=== PATIENT | male | born 1990 | race Caucasian/White ===

== ENCOUNTER 2017-10-22 18:59 | Emergency (ER) | payer OTHER ==
[~2017-10-22] VITALS: Ht 185.4 cm; Wt 90.0 kg
[~2017-10-22 18:59] MED LIST: CLIN1CAP6 PO; MOTR200T PO
[2017-10-22 19:58] VITALS: BP 134/58; PULSE 86; RESP 20; TEMP 99.1; O2SAT 100
[2017-10-22] MEDS ORDERED: KETOROLAC TROMETHAMINE 60 MG/2 ML (IM) VIAL IM ONE (20:45)
[2017-10-22] MEDS ORDERED: CYCL10TA PO (20:46)
[2017-10-22] MEDS ORDERED: MOBI15TA PO (20:46)
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
== END 2017-10-22 20:55 | disposition home or self-care (01) ==
LOC: NEPD 18:59
DX: S32.424 Nondisplaced fracture of posterior wall of right acetabulum (principal); V49.9XXD Car occupant (driver) (passenger) injured in unspecified traffic accident, subsequent encounter; Z72.0 Tobacco use
CPT/HCPCS: 96372; 99283; J1885

== ENCOUNTER 2017-10-26 14:57 | Inpatient (IN) | payer OTHER ==
[~2017-10-26] VITALS: Ht 185.4 cm; Wt 88.9 kg
[~2017-10-26 14:57] MED LIST changes: -CLIN1CAP6 PO; +CYCL10TA PO; +MOBI15TA PO; -MOTR200T PO
[2017-10-26 15:08] VITALS: BP 132/59; PULSE 94; RESP 18; TEMP 98.2; O2SAT 97
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
[2017-10-26 20:04] LABS: AUTOMATED NEUTROPHIL # 4.6 TH/MM3 (1.8-7.7); BASOPHIL # 0.1 TH/MM3 (0-0.2); BASOPHIL % 0.7 % (0.0-2.0); EOSINOPHIL # 0.1 TH/MM3 (0-0.4); EOSINOPHIL % 1.6 % (0.0-4.0); HEMATOCRIT 36.9 % (39.0-51.0); HEMOGLOBIN 12.6 GM/DL (13.0-17.0); LYMPH % 25.6 % (9.0-44.0); LYMPHOCYTE # 1.8 TH/MM3 (1.0-4.8); MEAN CELL VOLUME 90.2 FL (80.0-100.0); MEAN CORPUSCULAR HEMOGLOBIN 30.9 PG (27.0-34.0); MEAN CORPUSCULAR HGB CONC 34.2 % (32.0-36.0); MONO % 8.5 % (0.0-8.0); MONOCYTE # 0.6 TH/MM3 (0-0.9); NEUT % 63.6 % (16.0-70.0); PLATELET COUNT 260 TH/MM3 (150-450); RED BLOOD COUNT 4.09 MIL/MM3 (4.50-5.90); WHITE BLOOD COUNT 7.2 TH/MM3 (4.0-11.0)
[2017-10-26 20:13] LABS: PROTHROMBIN TIME - PATIENT 9.9 SEC (9.8-11.6)
[2017-10-26 20:32] LABS: CREATININE 0.87 MG/DL (0.60-1.30)
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
[2017-10-27] MEDS: SODIUM CHLOR 0.9% 1000 ML INJ 1,000 ML IV SCH ×4 (00:18→19:22)
[2017-10-27] MEDS ORDERED: MORPHINE SULFATE 4 MG/ML INJ IV PUSH PRN (02:00)
[2017-10-27] MEDS ORDERED: BISACODYL 10 MG SUPP RECTAL PRN (02:00)
[2017-10-27] MEDS ORDERED: LACTULOSE SYRUP 20 GM/30 ML CUP PO PRN (02:00)
[2017-10-27] MEDS ORDERED: NALOXONE HCL 0.4 MG/ML AMP IV PUSH PRN (02:00)
[2017-10-27] MEDS ORDERED: ACETAMINOPHEN 325 MG TAB PO PRN (02:00)
[2017-10-27] MEDS ORDERED: SENNOSIDES 8.6 MG TAB PO PRN (02:00)
[2017-10-27] MEDS ORDERED: ONDANSETRON HCL 4 MG/2 ML VIAL IVP PRN (02:00)
[2017-10-27] MEDS ORDERED: MAGNESIUM HYDROXIDE SUSP 30 ML CUP PO PRN (02:00)
[2017-10-27 03:10] VITALS: BP 135/85; PULSE 80; RESP 16; O2SAT 99
[2017-10-27 06:07] VITALS: BP 135/86; PULSE 74; RESP 18; O2SAT 100
[2017-10-27 08:00] VITALS: BP 124/75; PULSE 95; RESP 16; O2SAT 97
[2017-10-27] MEDS ORDERED: METH10TA PO (08:02)
[2017-10-27 10:01] VITALS: BP 115/70; PULSE 76; RESP 16; TEMP 98.5; O2SAT 96
[2017-10-27] MEDS: SODIUM CHLORIDE 0.9% FLUSH 10 ML FLUSH IV FLUSH SCH ×2 (10:30→19:27)
[2017-10-27] MEDS: DOCUSATE SODIUM 50 MG/SENNA 8.6 MG TAB PO SCH ×2 (10:31→19:27)
[2017-10-27] MEDS: METHADONE HCL 10 MG TAB PO SCH (10:31)
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
[2017-10-27] MEDS ORDERED: ceFAZolin INJ 1,000 MG VIAL IV ONE (12:00)
[2017-10-27] MEDS ORDERED: DEXAMETHASONE SOD PHOS 4 MG/ML VIAL IV ONE (12:00)
[2017-10-27] MEDS ORDERED: ONDANSETRON HCL 4 MG/2 ML VIAL IV ONE (12:00)
[2017-10-27] MEDS ORDERED: ROCURONIUM INJ 50 MG/5 ML SYRINGE IV PUSH ONE (12:00)
[2017-10-27] MEDS ORDERED: PROPOFOL 200 MG/20 ML AMP IV ONE (12:00)
[2017-10-27] MEDS ORDERED: LIDOCAINE HCL 1% PF 5 ML SYRINGE OTHER ONE (12:00)
[2017-10-27] MEDS ORDERED: CHLORHEXIDINE GLUCONATE 2 % 1 PACK (2 CLOTHS) TOPICAL PRN (14:15)
[2017-10-27] MEDS ORDERED: LACTATED RINGER'S 1000 ML IV PRN (14:15)
[2017-10-27] MEDS ORDERED: METOPROLOL TARTRATE 25 MG TAB PO PRN (14:15)
[2017-10-27] MEDS ORDERED: POVIDONE IODINE 5% (ANTISEPSIS KIT) 4 APPLICATIONS EACH NARE PRN (14:15)
[2017-10-27] MEDS ORDERED: SODIUM CHLORID 0.9% 500 ML IV PRN (14:15)
[2017-10-27] MEDS ORDERED: GENTAMICIN SULFATE 80 MG/2 ML VIAL ONE (14:37)
[2017-10-27] MEDS ORDERED: ACETAMINOPHEN 1000 MG/100 ML 100 ML IV ONE (14:51)
[2017-10-27] MEDS ORDERED: FAMOTIDINE 20 MG/2 ML VIAL ONE (14:51)
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
[2017-10-27] MEDS ORDERED: FAMOTIDINE 20 MG/2 ML VIAL IV PUSH SCH (15:00)
[2017-10-27] MEDS ORDERED: ACETAMINOPHEN 1000 MG/100 ML 100 ML IV SCH (15:00)
[2017-10-27] MEDS ORDERED: TRANEXAMIC ACID INJ 1,335 MG in SODIUM CHLORIDE 0.9% INJ 100 ML IV SCH (15:30)
[2017-10-27] MEDS ORDERED: HYDROmorphone HCL PF 2 MG/ML VIAL ONE ×2 (15:43→18:52)
[2017-10-27] MEDS ORDERED: KETAMINE HCL 500 MG/5 ML VIAL ONE (15:43)
[2017-10-27] MEDS ORDERED: VANCOMYCIN HCL 1000 MG VIAL ONE (16:29)
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
[2017-10-27] MEDS ORDERED: MISCELLANEOUS PHARMACY INFORMATION XX ONE (18:00)
[2017-10-27] MEDS ORDERED: MISCELLANEOUS NURSING INFORMATION XX PRN (18:00)
--- NOTE | 2017-10-27 18:13 | RADRPT ---
EXAM DATE/TIME: 10/27/2017 17:39 [facility] COMPARISON: No previous studies available for comparison. INDICATIONS : ORIF of the right acetabulum. MEDICAL HISTORY : None. SURGICAL HISTORY : None. ENCOUNTER: Subsequent ACUITY: 1 week PAIN SCORE: Non-responsive. LOCATION: Right pelvis FINDINGS: 3 images were recorded digital in the operating room using C-arm during placement of an acetabular pl ate. CONCLUSION: Intraoperative images. Long Tripp MD on October 27, 2017 at 18:11 Board Certified Radiologist. This report was verified electronically.
[2017-10-27] MEDS ORDERED: DO NOT ADM ANY ANTICOAGULANT DRUGS PRN (18:15)
[2017-10-27] MEDS ORDERED: MIDAZOLAM HCL 2 MG/2 ML VIAL ONE (18:36)
[2017-10-27] MEDS ORDERED: *MEPERIDINE 25 MG INJ VIAL PERIprocedural Use ONLY ONE (18:46)
[2017-10-27] MEDS: MORPHINE SULFATE 30 MG/30 ML PCA IV SCH ×2 (18:57→23:27)
[2017-10-27] MEDS: LACTATED RINGER'S 1000 ML INJ 1,000 ML IV SCH ×2 (19:00→19:47)
[2017-10-27] MEDS: ACETAMINOPHEN/HYDROcodone 325 MG/10 MG TAB PO PRN ×2 (19:27→19:31)
[2017-10-27] MEDS ORDERED: HYDROmorphone HCL PF 2 MG/ML VIAL IV ONE (21:00)
[2017-10-27] MEDS ORDERED: METHOCARBAMOL 500 MG TAB PO ONE (21:00)
[2017-10-27 21:25] VITALS: BP 114/57; PULSE 71; RESP 18; TEMP 97.7; O2SAT 100; O2SAT 96
[2017-10-27] MEDS: PCA - TOTAL MG MORPHINE DELIVERED PER SHIFT SCH (22:00)
[2017-10-28 00:10] VITALS: BP 113/65; PULSE 90; RESP 18; TEMP 98.6; O2SAT 95
[2017-10-28] MEDS: ACETAMINOPHEN/HYDROcodone 325 MG/10 MG TAB PO PRN ×4 (01:30→20:18)
[2017-10-28] MEDS: ceFAZolin 2 GM PREMIX 50 ML IV SCH ×3 (03:59→20:19)
[2017-10-28] MEDS: MORPHINE SULFATE 30 MG/30 ML PCA IV SCH ×5 (04:05→21:47)
[2017-10-28 05:00] VITALS: BP 111/59; PULSE 84; RESP 18; TEMP 97.3; O2SAT 97
[2017-10-28] MEDS: VANCOMYCIN INJ 1,000 MG in SODIUM CHLOR 0.9% 250 ML INJ 250 ML IV SCH ×2 (05:10→16:41)
[2017-10-28] MEDS: LACTATED RINGER'S 1000 ML INJ 1,000 ML IV SCH (05:11)
[2017-10-28] MEDS: ENOXAPARIN SODIUM 30 MG/0.3 ML SYRINGE SQ SCH ×2 (06:00→17:00)
[2017-10-28] MEDS: PCA - TOTAL MG MORPHINE DELIVERED PER SHIFT SCH ×3 (06:00→20:19)
--- NOTE | 2017-10-28 06:52 | PD.ORT.PN ---
Subjective Subjective Remarks POD 1 s/p ORIF Right Acetabulum doing well. reports hip is sore but otherwise doign ok Objective Vitals Vital Signs Date Time Temp Pulse Resp B/P (MAP) Pulse Ox O2 Delivery O2 Flow Rate FiO2 10/28/17 06:00 17 10/28/17 05:00 97.3 84 18 111/59 (76) 97 10/28/17 04:58 21 10/28/17 04:05 17 10/28/17 00:10 98.6 90 18 113/65 (81) 95 10/27/17 23:27 16 10/27/17 22:00 16 10/27/17 21:25 97.7 71 18 114/57 (76) 96 10/27/17 21:25 100 Nasal Cannula 2.00 10/27/17 19:31 96 Nasal Cannula 2.00 10/27/17 19:00 97.5 95 20 152/71 (98) 100 Nasal Cannula 2 10/27/17 18:57 19 10/27/17 18:45 96 19 150/84 (106) 99 Nasal Cannula 2 10/27/17 18:30 99 20 121/60 (80) 100 Nasal Cannula 2 10/27/17 18:14 97.2 117 12 111/56 (74) 97 Nasal Cannula 4 10/27/17 10:01 98.5 76 16 115/70 (85) 96 10/27/17 08:00 95 16 124/75 (91) 97 Room Air I/O 10/27/17 10/27/17 10/27/17 10/28/17 10/28/17 10/28/17 07:00 15:00 23:00 07:00 15:00 23:00 Intake Total 1220 ml 2080 ml Output Total 160 ml 1955 ml Balance 1060 ml 125 ml Intake Oral 20 ml 680 ml IV Total 0 ml 1400 ml Other 1200 ml Output Urine Total 1950 ml Drainage Total 10 ml 5 ml Estimated Blood Loss 150 ml # Bowel Movements 0 Result Diagram: 10/26/17190710/26/171907 Imaging Last 24 hours Impressions Knee X-Ray 10/26/172139 Signed Impressions: Service Date/Time: Thursday, October 26, 2017 22:02 - CONCLUSION: No evidence of recent bony injury. Long Tripp MD Objective Remarks RLE: dressings clean and dry. intact. +knee brace. +drain with minimal drainage. NVI with good dorsiflexion Assessment & Plan Assessment and Plan 1) Right Acetabulum fx s/p ORIF - POD 1 -TTWB -posterior hip precautions -daily dressing changes POD 2 -knee brace while in bed -plan for DC home possibly Thursday -DVT prophylaxis -f/u with Afia or PA in 2 weeks Perfecto Vera/Rv Repairer BRANDON Oct 28, 2017 06:52
[2017-10-28] MEDS ORDERED: WALKER/ADULT/FO1 MIS (06:54)
[2017-10-28] MEDS ORDERED: XARE10TA PO (06:54)
[2017-10-28] MEDS ORDERED: HYDR-3583 PO (06:54)
--- NOTE | 2017-10-28 06:55 | HHI.FF ---
Face to Face Verification Diagnosis: (1) Fracture of right acetabulum Physical Therapy Gait training Hip: Hip fracture, Protocol: Right, Posterior hip precautions Canvas Knee Splint: At all times Right LE Weight Bearing: Toe Touch WB Nursing Dressing Changes: Daily dressing change, Xeroform (begin xeroform POD 10), Coverderm/Primapore I have seen patient Jh Simmons on 10/28/17. My clinical findings support the need for the requested home health care services because: Ltd mobility - disease progression I certify that my clinical findings support that this patient is homebound because: Post-op weakness Perfecto Vera/Machine Buffer PA Oct 28, 2017 06:55
[2017-10-28 07:16] VITALS: BP 115/68; PULSE 83; RESP 18; TEMP 98.2; O2SAT 93
[2017-10-28] MEDS: SODIUM CHLORIDE 0.9% FLUSH 10 ML FLUSH IV FLUSH SCH ×2 (08:05→20:19)
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
[2017-10-28] MEDS: INDOMETHACIN 75 MG CONTROLLED RELEASE CAP PO SCH (08:06)
[2017-10-28] MEDS: DOCUSATE SODIUM 50 MG/SENNA 8.6 MG TAB PO SCH ×2 (08:06→20:18)
[2017-10-28] MEDS: METHADONE HCL 10 MG TAB PO SCH (08:06)
[2017-10-28 09:23] LABS: BASOPHIL % 0.2 % (0.0-2.0); EOSINOPHIL % 0.1 % (0.0-4.0); HEMATOCRIT 35.5 % (39.0-51.0); HEMOGLOBIN 12.2 GM/DL (13.0-17.0); LYMPH % 7.4 % (9.0-44.0); LYMPHOCYTE # 0.9 TH/MM3 (1.0-4.8); MEAN CELL VOLUME 89.1 FL (80.0-100.0); MEAN CORPUSCULAR HEMOGLOBIN 30.6 PG (27.0-34.0); MEAN CORPUSCULAR HGB CONC 34.3 % (32.0-36.0); MEAN PLATELET VOLUME 8.5 FL (7.0-11.0); MONO % 7.1 % (0.0-8.0); MONOCYTE # 0.8 TH/MM3 (0-0.9); NEUT % 85.2 % (16.0-70.0); PLATELET COUNT 289 TH/MM3 (150-450); RED BLOOD COUNT 3.99 MIL/MM3 (4.50-5.90); RED CELL DISTRIBUTION WIDTH 12.5 % (11.6-17.2); WHITE BLOOD COUNT 11.7 TH/MM3 (4.0-11.0)
[2017-10-28 09:47] LABS: BICARBONATE 25.8 MEQ/L (21.0-32.0); CALCIUM 7.6 MG/DL (8.5-10.1); CREATININE 0.69 MG/DL (0.60-1.30)
[2017-10-28] MEDS ORDERED: METHADONE HCL 10 MG TAB PO ONE (11:45)
[2017-10-28] MEDS ORDERED: MORPHINE SULFATE 4 MG/ML INJ IV PUSH ONE (11:45)
[2017-10-28 11:54] VITALS: BP 127/69; PULSE 78; RESP 18; TEMP 98.4; O2SAT 97
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
[2017-10-28 16:00] VITALS: BP 124/69; PULSE 79; RESP 18; TEMP 98; O2SAT 96
[2017-10-28] MEDS: MORPHINE SULFATE 4 MG/ML INJ IV PUSH PRN (16:42)
[2017-10-28 20:00] VITALS: BP 124/75; PULSE 84; RESP 16; TEMP 98.8; O2SAT 97
[2017-10-29] VITALS (7 sets, daily range): BP systolic 106–129; BP diastolic 57–87; PULSE 71–84; RESP 15–18; TEMP 96–98; O2SAT 96–97
[2017-10-29] MEDS: ACETAMINOPHEN/HYDROcodone 325 MG/10 MG TAB PO PRN ×4 (00:10→13:04)
[2017-10-29] MEDS: VANCOMYCIN INJ 1,000 MG in SODIUM CHLOR 0.9% 250 ML INJ 250 ML IV SCH ×2 (04:32→17:00)
[2017-10-29] MEDS: ceFAZolin 2 GM PREMIX 50 ML IV SCH ×3 (04:32→20:15)
[2017-10-29] MEDS: LACTATED RINGER'S 1000 ML INJ 1,000 ML IV SCH ×3 (04:32→19:50)
[2017-10-29] MEDS: MORPHINE SULFATE 4 MG/ML INJ IV PUSH PRN ×5 (04:32→22:04)
[2017-10-29] MEDS: MORPHINE SULFATE 30 MG/30 ML PCA IV SCH ×2 (04:50→08:59)
[2017-10-29] MEDS: PCA - TOTAL MG MORPHINE DELIVERED PER SHIFT SCH ×3 (04:51→20:16)
[2017-10-29] MEDS: ENOXAPARIN SODIUM 30 MG/0.3 ML SYRINGE SQ SCH ×2 (06:48→17:00)
--- NOTE | 2017-10-29 06:58 | PD.ORT.PN ---
Subjective Subjective Remarks POD 2 s/p ORIF Right Acetabulum doing well. reports hip is sore but otherwise doign ok. out of bed with therapy yesterday and doign well Objective Vitals Vital Signs Date Time Temp Pulse Resp B/P (MAP) Pulse Ox O2 Delivery O2 Flow Rate FiO2 10/29/17 04:51 18 10/29/17 04:50 18 10/29/17 00:17 96 10/29/17 00:00 97.0 75 15 109/65 (80) 96 10/28/17 20:19 18 10/28/17 20:00 98.8 84 16 124/75 (91) 97 10/28/17 17:06 18 10/28/17 17:01 18 10/28/17 16:47 18 10/28/17 16:00 98.0 79 18 124/69 (87) 96 10/28/17 14:43 18 10/28/17 13:07 16 10/28/17 12:31 18 10/28/17 12:31 18 10/28/17 12:13 16 10/28/17 11:54 98.4 78 18 127/69 (88) 97 10/28/17 09:06 18 10/28/17 08:22 18 10/28/17 07:16 98.2 83 18 115/68 (84) 93 I/O 10/28/17 10/28/17 10/28/17 10/29/17 10/29/17 10/29/17 07:00 15:00 23:00 07:00 15:00 23:00 Intake Total 2080 ml 720 ml 800 ml Output Total 1955 ml 640 ml Balance 125 ml 720 ml 160 ml Intake Oral 680 ml 720 ml 800 ml IV Total 1400 ml Output Urine Total 1950 ml 640 ml Drainage Total 5 ml # Voids 5 # Bowel Movements 0 0 0 Result Diagram: 10/28/17 0755 10/28/17 0755 Imaging Last 24 hours Impressions Knee X-Ray 10/26/172139 Signed Impressions: Service Date/Time: Thursday, October 26, 2017 22:02 - CONCLUSION: No evidence of recent bony injury. Long Tripp MD Objective Remarks RLE: dressings clean and dry. intact. +knee brace. +drain with minimal drainage. NVI with good dorsiflexion Assessment & Plan Assessment and Plan 1) Right Acetabulum fx s/p ORIF - POD 2 -TTWB -posterior hip precautions -daily dressing changes beginning today -knee brace while in bed -plan for DC home possibly Thursday -DVT prophylaxis -f/u with Afia or PA in 2 weeks -DC GEAR SHAVER SET UP OPERATOR and DC drain today Perfecto Vera/Lehr Stripper BRANDON Oct 29, 2017 06:58
[2017-10-29] MEDS: INDOMETHACIN 75 MG CONTROLLED RELEASE CAP PO SCH (08:53)
[2017-10-29] MEDS: DOCUSATE SODIUM 50 MG/SENNA 8.6 MG TAB PO SCH ×2 (08:53→20:16)
[2017-10-29] MEDS: METHADONE HCL 10 MG TAB PO SCH (08:54)
[2017-10-29] MEDS: SODIUM CHLORIDE 0.9% FLUSH 10 ML FLUSH IV FLUSH SCH ×2 (09:00→20:16)
[2017-10-29] MEDS ORDERED: oxyCODONE/ACETAMINOPHEN 10 MG/325 MG TAB PO PRN (13:30)
[2017-10-29] MEDS: oxyCODONE/ACETAMINOPHEN 10 MG/325 MG TAB PO PRN ×4 (14:04→23:14)
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
--- NOTE | 2017-10-29 21:46 | EKG ---
Date Performed: 10/28/2017 Time Performed: 13:45:21 PTAGE: 27 years EKG: Sinus rhythm NORMAL ECG NO PREVIOUS TRACING DOCTOR: Paul Holder Interpretating Date/Time 10/29/2017 21:44:40
[2017-10-30] VITALS (8 sets, daily range): BP systolic 115–139; BP diastolic 69–80; PULSE 72–86; RESP 15–18; TEMP 96.6–98.1; O2SAT 96–98
[2017-10-30] MEDS: PCA - TOTAL MG MORPHINE DELIVERED PER SHIFT SCH ×4 (00:56→19:20)
[2017-10-30] MEDS: MORPHINE SULFATE 4 MG/ML INJ IV PUSH PRN ×6 (02:17→22:54)
[2017-10-30] MEDS: oxyCODONE/ACETAMINOPHEN 10 MG/325 MG TAB PO PRN ×4 (03:05→21:34)
[2017-10-30] MEDS: ENOXAPARIN SODIUM 30 MG/0.3 ML SYRINGE SQ SCH ×2 (05:31→17:39)
[2017-10-30] MEDS: LACTATED RINGER'S 1000 ML INJ 1,000 ML IV SCH ×3 (05:50→19:20)
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
[2017-10-30] MEDS: METHADONE HCL 10 MG TAB PO SCH (08:48)
[2017-10-30] MEDS: DOCUSATE SODIUM 50 MG/SENNA 8.6 MG TAB PO SCH ×2 (08:48→19:50)
[2017-10-30] MEDS: INDOMETHACIN 75 MG CONTROLLED RELEASE CAP PO SCH (08:48)
[2017-10-30] MEDS: SODIUM CHLORIDE 0.9% FLUSH 10 ML FLUSH IV FLUSH SCH ×2 (08:52→19:51)
[2017-10-30] MEDS ORDERED: MORPHINE SULFATE 30 MG CONTROLLED RELEASE TAB PO ONE (09:45)
[2017-10-30] MEDS ORDERED: ACETAMINOPHEN 325 MG TAB PO PRN (10:00)
[2017-10-30] MEDS ORDERED: MORP1TAB25 PO (10:08)
[2017-10-30] MEDS: SODIUM CHLORIDE 0.9% FLUSH 10 ML FLUSH IV FLUSH PRN ×2 (10:44→17:45)
[2017-10-30] MEDS: MORPHINE SULFATE 30 MG CONTROLLED RELEASE TAB PO SCH (19:50)
[2017-10-31] MEDS: MORPHINE SULFATE 4 MG/ML INJ IV PUSH PRN ×3 (03:09→09:23)
[2017-10-31 04:15] VITALS: BP 134/78; PULSE 88; RESP 16; TEMP 97; O2SAT 96
[2017-10-31] MEDS: oxyCODONE/ACETAMINOPHEN 10 MG/325 MG TAB PO PRN ×3 (04:15→10:36)
[2017-10-31] MEDS: ENOXAPARIN SODIUM 30 MG/0.3 ML SYRINGE SQ SCH (06:09)
[2017-10-31] MEDS: METHADONE HCL 10 MG TAB PO SCH (07:59)
[2017-10-31 08:00] VITALS: BP 120/77; PULSE 90; RESP 20; TEMP 98; O2SAT 98
[2017-10-31] MEDS: DOCUSATE SODIUM 50 MG/SENNA 8.6 MG TAB PO SCH (08:00)
[2017-10-31] MEDS: MORPHINE SULFATE 30 MG CONTROLLED RELEASE TAB PO SCH (08:00)
[2017-10-31] MEDS: INDOMETHACIN 75 MG CONTROLLED RELEASE CAP PO SCH (08:00)
[2017-10-31] MEDS: SODIUM CHLORIDE 0.9% FLUSH 10 ML FLUSH IV FLUSH SCH (08:02)
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
[2017-10-31 09:33] VITALS: RESP 18
== END 2017-10-31 11:35 | disposition home or self-care (01) | DRG 516 ==
LOC: NEPC 14:57 → NEDA 23:53 → N06B 10-27 19:14
PROVIDERS: ADMIT Hospitalist; ATTEND Hospitalist
PROC: 0QS404Z Reposition Right Acetabulum with Internal Fixation Device, Open Approach (ICD-10-PCS; principal; 2017-10-27 15:52)
DX: S32.421A Displaced fracture of posterior wall of right acetabulum, initial encounter for closed fracture (principal); F11.20 Opioid dependence, uncomplicated; F07.81 Postconcussional syndrome; S86.912A Strain of unspecified muscle(s) and tendon(s) at lower leg level, left leg, initial encounter; F17.210 Nicotine dependence, cigarettes, uncomplicated; S32.414A Nondisplaced fracture of anterior wall of right acetabulum, initial encounter for closed fracture; Y92.410 Unspecified street and highway as the place of occurrence of the external cause; V89.2XXA Person injured in unspecified motor-vehicle accident, traffic, initial encounter
CPT/HCPCS: 70450; 73502; 73560; 73700; 76000; 80048; 85025; 85610; 85730; 93005; 94150; 99285; C1713; J0131; J0690; J1100; J1170; J1580; J1650; J2175; J2250; J2270; J2405; J3010; J3370; J7030; J7050; J7120